=== PATIENT | female | born 1980 | race Caucasian/White ===

== ENCOUNTER 2020-05-18 07:24 | Outpatient (CLI) | payer SELFPAY ==
[2020-05-21 00:18] LABS: Patient Race White; SARS-CoV-2 RNA Undetected (Undetected); SARS-CoV-2 Specimen Source Nasopharynx
== END 2020-05-18 07:44 ==
PROVIDERS: Visit Provider Family Medicine
DX: Z11.59 Encounter for screening for other viral diseases (principal)
CPT/HCPCS: U0003

== ENCOUNTER 2021-08-15 03:57 | Outpatient (CLI) | payer OTHER, SELFPAY ==
[2021-08-17 11:47] LABS: CMV Ab, IgM Negative (Negative)
== END 2021-08-15 03:58 | disposition home or self-care (01) ==
LOC: LBO 03:58
PROVIDERS: Visit Provider Obstetrics & Gynecology Reproductive Endocrinology
DX: N97.8 Female infertility of other origin (principal)
CPT/HCPCS: 36415; 86644; 86645

== ENCOUNTER 2021-09-07 03:53 | Outpatient (CLI) | payer OTHER, SELFPAY ==
[2021-09-08 09:36] LABS: Hepatitis B Surface Ag Negative (Negative)
[2021-09-08 10:12] LABS: Hepatitis C Ab w Rflx HCV PCR Negative (Negative)
[2021-09-08 10:46] LABS: Hep B Core Antibody Negative (Negative)
== END 2021-09-07 03:54 | disposition home or self-care (01) ==
LOC: LBO 03:53
PROVIDERS: Visit Provider Obstetrics & Gynecology Reproductive Endocrinology
DX: Z11.4 Encounter for screening for human immunodeficiency virus [HIV] (principal); Z11.3 Encounter for screening for infections with a predominantly sexual mode of transmission; Z11.59 Encounter for screening for other viral diseases
CPT/HCPCS: 36415; 86704; 86803; 87340; 86644; 86645

== ENCOUNTER 2021-10-28 14:43 | Emergency (ER) | payer OTHER, SELFPAY ==
--- NOTE | 2021-10-28 14:45 | DI.RAD_ITS ---
Exam(s) XR WRIST RT COMPLETE EXAM: XR WRIST RT COMPLETE CLINICAL HISTORY: fall onto outstretched hand while skiing, r/o fx. TECHNIQUE: 2D digital imaging was performed. COMPARISON: No exams were available for comparison FINDINGS: There is comminuted fracture of distal radius which violates the radiocarpal joint and exhibits some dorsal angulation. There is also a fracture of the ulnar styloid with some displacement. Scaphoid a ppears unremarkable as does the scapholunate distance. No carpal dislocation. IMPRESSION: Fractures of the distal radius and ulnar styloid. DATA REPOSITORY: RADIATION DOSE DELIVERED:
--- NOTE | 2021-10-28 14:49 | W.ED.GENAD ---
Discharge Plan Disposition Patient Disposition: HOME Condition: Stable Discharge Details Clinical Impression: Fracture of right wrist Primary Care Provider: Elsy,Local ED Provider: Mariam Ramires Home Meds and New Rx's Prescriptions: Continued ibuprofen 200 MG tablet 1 tab PO PRN PRN0RF Discharge Instructions Instructions: Wrist Fracture in Adults (ED) Additional Instructions: Rest, ice, and elevate the affected area as much as possible. You can take Tylenol every 4 hours and ibuprofen every 6 hours for pain. Take the oxycodone every 6-8 hours as needed and directed for pain not relieved with Tylenol or ibuprofen. Follow-up with orthopedics next week. You will likely receive a call from orthopedics to schedule your appointment. You can call them next week to confirm the plan for follow up. Return immediately to the emergency department if you develop any worsening or new concerning symptoms. Referrals: Rancho Terry MD [ [facility] STAFF PHYSICIAN] - Discharge Data Discharge Date/Time-TO BE ENTERED AT DEPARTURE: 10/28/21 17:50 Discharge Physician: Mariam Ramires Medical Decision Making 41-year-old female with history of tubal ligation presents with right wrist pain after fall while snowboarding a few hours ago. Patient appears uncomfortable. She is in a SLOAN splint of her distal right upper extremity. She has tenderness overlying the dorsal wrist. Normal capillary refill. No tenderness at overlying remainder of right upper extremity. Will refer for right wrist x-ray and give a dose of Tylenol. She declines any narcotics at this time. Xray notes: There is comminuted fracture of distal radius which violates the radiocarpal joint and exhibits some dorsal angulation.? There is also a fracture of the ulnar styloid with some displacement.? Scaphoid appears unremarkable as does the scapholunate distance.? No carpal dislocation. SLOAN splint removed after xray and exam notes deformity with bowing of distal wrist on the volar aspect and dorsal angulation of the distal wrist and hand just inferior to this. NV intact. Imaging reviewed with Dr. Terry who recommends hematoma block with manipulation to slightly reduce prior to splint placement. This injury will require surgery. Orthopedics will follow up next week. Patient given oxycodone and hematoma block performed with reduction/manipulation to improve angulation and volar splint placed. Dr. Terry requested a CT of her wrist which was obtained and noted improved anatomic alignment. Patient placed on orthopedic follow-up list. She was given oxycodone to go for breakthrough pain. A sling was placed. Usual and customary return precautions given prior to discharge. Medical Records Medical records reviewed: Yes I reviewed the patient's medical records. Imaging Data Radiologic Study: Radiologist's impression: ?XR WRIST RT COMPLETE CLINICAL HISTORY: ? fall onto outstretched hand while skiing, r/o fx. ? TECHNIQUE:? 2D digital imaging was performed. COMPARISON:? No exams were available for comparison FINDINGS: There is comminuted fracture of distal radius which violates the radiocarpal joint and exhibits some dorsal angulation.? There is also a fracture of the ulnar styloid with some displacement.? Scaphoid appears unremarkable as does the scapholunate distance.? No carpal dislocation. IMPRESSION: Fractures of the distal radius and ulnar styloid. CT Right Upper Extremity Without Contrast, Wrist Exam date and time: 10/28/2021 17:20 Age: 41 years old Clinical indication: Injury or trauma; Blunt trauma (contusions or hematomas); Wrist; Right; Patient HX: S/P fall, intra-articular FX, post splint TECHNIQUE: Imaging protocol: CT of the Right upper extremity without contrast was performed. Exam focused on the wrist. COMPARISON: CR XR WRIST RT COMPLETE 10/28/2021 15:39 FINDINGS: Bones/joints: Acute comminuted intra-articular radial fracture. Impaction has been reduced and is now minimal. Dorsal angulation is essentially anatomic. Acute fracture of the ulnar styloid without significant distraction. The carpal bones are intact. No dislocation. Soft tissues: Generalized soft tissue swelling about the wrist. IMPRESSION: 1. Acute comminuted intra-articular radial fracture in nearly anatomic alignment. 2. Acute fracture of the ulnar styloid without significant distraction. HPI General Date/Time Provider Initiated Documentation: 10/28/21 14:49. Limitations to Documentation: no limitations. Information obtained by: patient. HPI Narrative: Patient is a 38 yo female with a history of tubal ligation who presents with right wrist pain after fall onto outstretched hand while snowboarding 2 hours ago. Patient states she [place] She states she was wearing a helmet and denies any head injury or damage to helmet. She denies headache, neck pain, LOC or vomiting. She states she is only having pain in her right wrist and denies any pain in her shoulder, elbow, left arm or legs. She denies any neck pain, back pain, chest or abdominal pain. She took 800 mg of ibuprofen at 1 PM. Related Data Home Medications Medication Instructions Recorded Confirmed ibuprofen 200 mg tablet 1 tab PO PRN PRN 10/24/15 10/28/21 Allergies Allergy/AdvReac Type Severity Reaction Status Date / Time shrimp AdvReac Mild Hives Unverified 10/28/21 15:51 General Stated Complaint: Orthopedic Review of Systems All systems reviewed & are unremarkable except as noted in HPI and below Constitutional Constitutional: Reports as per HPI, Denies chills and Denies fever(s) Eyes Eyes: Denies blurry vision ENT Ears, Nose, Mouth, and Throat: Denies dizziness, Denies sore throat and Denies throat swelling Cardiovascular Cardiovascular: Denies chest pain and Denies dyspnea Respiratory Respiratory: Denies cough and Denies dyspnea Gastrointestinal Gastrointestinal: Denies abdominal pain, Denies diarrhea and Denies vomiting Genitourinary Genitourinary: Denies hematuria and Denies dysuria Musculoskeletal Musculoskeletal: Denies back pain and Denies numbness Comments: R wrist pain Integumentary/Breasts Skin/Breast: Denies lesions and Denies rash Neurologic Neurologic: Denies dizziness, Denies localized weakness and Denies numbness Allergic/Immunologic Allergic/Immunologic: Denies throat swelling PFSH All Active Problems (Updated 10/28/21 @ 16:32 by Mariam Ramires DO) Fracture of right wrist (Acute) Social History Smoking/Tobacco Use Status: Never Smoking risk assessment performed?: Yes Alcohol Intake: never Drug use: Never Do you feel safe at home: Yes Exam Const General: cooperative and uncomfortable Orientation: alert, awake and oriented x3 HENMT Head: normal to inspection Mouth: oral mucosae normal Eyes General: appearance normal, both eyes and all related structures Neck Neck: normal visual inspection Resp Effort & Inspection: normal respiratory effort and able to speak in complete sentences Cardio Rate: regular rate Skin General skin exam: no rashes or lesions noted Neuro General: patient alert, patient awake and patient oriented x3 Motor: muscle tone normal throughout Extrem Other: Right upper extremity initially examined with SLOAN splint in place. She has moderate edema and significant tenderness overlying the distal dorsal wrist. Normal capillary refill. No tenderness to palpation to right shoulder, upper arm, elbow or proximal forearm. After SLOAN splint removed, there is bowing on the volar aspect of the distal wrist with dorsal angulation of the wrist and hand just inferior to this. Right radial and ulnar pulses intact. Hand normal to inspection. There are no open wounds. Psych Appearance: grossly normal Affect: normal affect Procedures Orthopedic Fracture Reduction Fracture #1: Time Out Performed: Yes Side: right Fracture Reduction Location: radius Analgesia: hematoma block (5cc 1% lidocaine and 5cc 0.5% bupivicaine) Technique: direct manipulation Post Reduction X-rays Demonstrate: anatomical reduction Post-reduction neuro exam: intact Post-reduction vascular exam: intact Splint Applied: Yes Patient Tolerated Procedure: well
[2021-10-28 14:57] VITALS: BP 128/76; PULSE 86; RESP 16; TEMP 36.9; O2SAT 99
[2021-10-28] MEDS: Acetaminophen 500 MG TAB 1000 MG PO (16:06)
[2021-10-28] MEDS: Bupivacaine 0.5% Pres-Free 30 ML VIAL (16:17)
[2021-10-28] MEDS: oxyCODONE 5 MG TAB PO (16:28)
--- NOTE | 2021-10-28 17:15 | DI.CT_ITS ---
Exam(s) CT UPPER EXTREMITY RT WO EXAM: CT UPPER EXTREMITY RT WO CLINICAL HISTORY: s/p fall, intra-articular fx, post splint. TECHNIQUE: Imaging Protocol: Axial computed tomography images with coronal and sagittal reformatted images were created and reviewed. COMPARISON: CR XR WRIST RT COMPLETE from 10/28/2021 FINDINGS: Bones: There is an acute intra-articular comminuted fracture of the distal radius. Since the plain films there is a been a reduction in the angulation and impaction which are now minimal. There is al so an acute ulnar styloid process fracture which is comminuted. No significant displacement is seen. No cellulitic or osteomyelitic changes are identified. There is no evidence of joint space narrowi ng or cystic degeneration seen. No lytic or sclerotic lesions are identified. Soft Tissues: Generalized soft tissue swelling about the wrist. IMPRESSION: 1. Improved alignment of the comminuted intra-articular fracture of the distal radius. 2. Comminuted ulnar styloid process fracture. RADIATION DOSE DELIVERED: 149.4mGy.cm Total DLP 149.4mGy.cm Total DLP DATA REPOSITORY: All CT scans at this facility are submitted to the National Radiology Data Registry (NRDR) Dose Index Registry (DIR) with the [employer] (A[employer]). RADIATION OPTIMIZATION: All CT scans at this facility use at least one of these dose optimization te chniques: automated exposure control; mA and/or kV adjustment per patient size (includes targeted exa ms where dose is matched to clinical indication); or iterative reconstruction.
--- NOTE | 2021-10-28 17:46 | DI.VRAD_ITS ---
PROCEDURE INFORMATION: Exam: CT Right Upper Extremity Without Contrast, Wrist Exam date and time: 10/28/2021 17:20 Age: 41 years old Clinical indication: Injury or trauma; Blunt trauma (contusions or hematomas); Wrist; Right; Patient HX: S/P fall, intra-articular FX, post splint TECHNIQUE: Imaging protocol: CT of the Right upper extremity without contrast was performed. Exam focused on the wrist. COMPARISON: CR XR WRIST RT COMPLETE 10/28/2021 15:39 FINDINGS: Bones/joints: Acute comminuted intra-articular radial fracture. Impaction has been reduced and is now minimal. Dorsal angulation is essentially anatomic. Acute fracture of the ulnar styloid without significant distraction. The carpal bones are intact. No dislocation. Soft tissues: Generalized soft tissue swelling about the wrist. IMPRESSION: 1. Acute comminuted intra-articular radial fracture in nearly anatomic alignment. 2. Acute fracture of the ulnar styloid without significant distraction. Dictated and Authenticated by: Lina Moore MD. Ordering:CEE Becerra MD
[2021-10-28 17:48] VITALS: BP 112/70; PULSE 80; RESP 17; TEMP 36.6; O2SAT 100
== END 2021-10-28 17:50 | disposition home or self-care (01) ==
PROVIDERS: Emergency Provider Physician Assistant
DX: S52.591A Other fractures of lower end of right radius, initial encounter for closed fracture (principal); V00.311A Fall from snowboard, initial encounter
CPT/HCPCS: 81025; 25605; 73110; 73200

== ENCOUNTER 2021-10-31 10:38 | Outpatient (CLI) | payer OTHER, SELFPAY ==
[2021-10-31 12:58] LABS: Source Nasal/Nares
[2021-10-31 17:07] LABS: COVID-19 PCR Negative (Negative)
== END 2021-10-31 10:39 | disposition home or self-care (01) ==
PROVIDERS: Visit Provider Student in an Organized Health Care Education/Training Program
DX: Z20.822 Contact with and (suspected) exposure to COVID-19 (principal); Z01.818 Encounter for other preprocedural examination
CPT/HCPCS: 87635

== ENCOUNTER 2021-11-02 11:47 | Day surgery (SDC) | payer OTHER, SELFPAY ==
[2021-11-02] VITALS (10 sets, daily range): BP systolic 101–114; BP diastolic 55–81; PULSE 54–71; RESP 12–20; TEMP 36.4–36.9; TEMPC 36.5; O2SAT 95–100; BMI 21.2
--- NOTE | 2021-11-02 07:57 | W.PM.DSUDISC ---
Discharge Plan Disposition Patient Disposition: HOME Condition: Stable Discharge Details Reason For Visit: Right Wrist ORIF Attending Provider: Rancho Terry Primary Care Provider: No,Local Home Meds and New Rx's Prescriptions: Continued hydrocodone-acetaminophen 5-325 mg tablet 1 tab PO Q4H MDD 30mg PRN (Reason: pain) Qty: 10 0RF ibuprofen 200 MG tablet 1 tab PO PRN PRN0RF Discharge Instructions Additional Instructions: Wrist Fracture Fixation Discharge Instructions Activity: You should keep the hand/wrist elevated as much as possible for the first few days. You may use the other fingers as tolerated but avoid trying to do too much too soon. You may perform light activities with the splint in place. Dressing/Cast: Your splint should stay in place at all times. Do NOT get it wet. You may loosen the CINDY wrap if you feel it is too tight and then rewrap more loosely. Medications: - You should take Tylenol and Ibuprofen for baseline pain control. - Continue your previously prescribed stronger pain medication, hydrocodone, for breakthrough pain. - You may apply ice over the wrist, just double bag so it doesn't get wet. Follow-up: 10-14 days Referrals: Rancho Terry MD [ [facility] STAFF PHYSICIAN] - Equipment/Supplies: Splint Activity:: Activity as Tolerated Remove Dressings/Wound Care:: Do Not Remove Shower/Bathe:: Cover Diet:: As Tolerated Discharge Orders Discharge Orders: Discharge Order (Routine); Ordered 11/02/21 Ordered By: Ignacia Mar DS: Diagnosis Discharge Diagnosis (1) Fracture of right wrist: Status: Acute
[2021-11-02] MEDS: Lactated Ringers 1,000 ML 80 ML IV (12:51)
--- NOTE | 2021-11-02 12:55 | W.ANESPRE ---
General Info Date of Service Date Performed: 11/02/21 Height: 5 ft 6 in Weight: 59.8 kg Body Mass Index (BMI): 21.2 Surgical Procedure: Operation Date: 11/02/21 14:10 Proposed Procedure Side Surgeon p Wrist ORIF Distal Radius Right Rancho Terry MD Meds Allergies and Home Medications Allergies Allergy/AdvReac Type Severity Reaction Status Date / Time shrimp AdvReac Mild Hives Unverified 11/02/21 12:27 Splint Material Allergy Intermediate Skin Rash Uncoded 11/02/21 12:27 Home Medication Medication Instructions Recorded ibuprofen 200 mg tablet 1 tab PO PRN PRN 10/24/15 hydrocodone 5 mg-acetaminophen 325 1 tab PO Q4H PRN #10 tab MDD 30mg 10/31/21 mg tablet multivit-iron 18 mg-folic acid 400 tab PO 11/02/21 mcg-calcium 500 mg-minerals tablet (Women's One Daily) Current Visit Medications: Current Medications Generic Name Dose Route Start Last Admin Trade Name Freq PRN Reason Stop Dose Admin Acetaminophen 650 mg 11/02/21 07:57 Acetaminophen 325 Mg Tab PO Q4H PRN PRN Hydrocodone Bitart/Acetaminophen 0 tab 11/02/21 07:57 Hydrocodone 5/Acetaminophen 325 Tab PO Q3H PRN PRN Pain Ringer's Solution 1,000 mls @ 80 mls/hr 11/02/21 06:00 11/02/21 12:51 IV 12/01/21 23:59 80 mls/hr INFUSION ALONDRA Administration Cefazolin Sodium/Dextrose 2 gm in 50 mls @ 100 mls/hr 11/02/21 06:00 Ancef Duplex IVPB 12/01/21 23:59 PREOP ALONDRA Ondansetron HCl 4 mg/ Sodium 52 mls @ 200 mls/hr 11/02/21 07:57 Chloride IVPB Q6H PRN PRN IV Miscellaneous Supplies 1 each 11/02/21 06:00 Iv Access IV 12/01/21 23:59 DIRECTED ALONDRA Sodium Chloride 0 ml 11/02/21 06:00 Normal Saline Flush 10 Ml Syr IV 12/01/21 23:59 PRN PRN Sodium Chloride 0 ml 11/02/21 06:00 Normal Saline 10 Ml Vial IJ 12/01/21 23:59 DIRECTED PRN Sterile Water 0 ml 11/02/21 06:00 Water,Injection,Sterile 10 Ml Vial IJ 12/01/21 23:59 DIRECTED PRN PFSH Active Problems Active Problems: Problem Status Onset Code Fracture of right wrist S62.101A Surgical History Surgical History (Updated 11/02/21 @ 12:25 by Madeline Bundy RN) History of tubal ligation Hx of eye surgery Tobacco Smoking/Tobacco Use Status: Never Alcohol Alcohol Intake: never Substance Use Substance use: Never Substance use type: does not use Vital Signs and Lab Results Vital Signs Most Recent Vital Signs in EMR: Most Recent Vital Signs Temp Pulse Resp BP Pulse Ox 36.9 C 71 18 101/81 99 11/02/21 12:05 11/02/21 12:05 11/02/21 12:05 11/02/21 12:05 11/02/21 12:05 Lab Results Blood Type / Crossmatch: No Data to Display Complete Blood Count: No Data to Display Complete Metabolic Panel: No Data to Display Liver Function Panel: No Data to Display Coagulation Panel: No Data to Display Cardiac Panel: No Data to Display Arterial Blood Gas: No Data to Display Venous Blood Gas: No Data to Display Pancreas Panel: No Data to Display Thyroid Panel: No Data to Display Infectious Disease: Coronavirus (COVID-19)(PCR) Negative (Negative) 10/31/21 10:30 10/31/21 Coronavirus 2019 Source Nasal/Nares 10/31/21 10:30 10/31/21 Blood Cultures: No Data to Display Toxicology Panel: No Data to Display Panel: No Data to Display Anesthesia Assessment and Plan Anesthesia History Personal History: No History of Anesthesia Complications Family History: No Family History of Anesthesia Complications Exercise Tolerance Exercise Tolerance: Metabolic Equivalents<4 Pertinent Negatives Pertinent Negatives: No Symptoms of GERD, No Major Cardiovascular Symptoms or Complaints, No Major Pulmonary Symptoms or Complaints and No History of CVA/TIA Cardiac & Pulmonary Exam Cardiac Exam: Normal S1/S2 Heart Sounds Pulmonary Exam: Clear Bilateral Breath Sounds Implantable Cardiac Device Does patient have a Pacemaker or an ICD?: No Airway Exam Known Difficult Airway: No Mallampati Class: 1 Mouth Opening: Normal (> 3cm) Thyromental Distance: Greater than 3 cm Neck Range of Motion: Full ROM Neck Circumference: Normal Teeth Condition: Normal Dentition ASA Classification ASA Score: ASA 1 Emergency Case?: No NPO Status NPO Status: NPO Clears >2 hours, Solids >8 hours Status Status: Not Relevant due to Medical History Anesthesia Plan Resuscitation Status: Full Code Anesthesia Technique: General Anesthesia Airway Planned: LMA Monitors Used: Standard Monitors
--- NOTE | 2021-11-02 13:00 | DI.RAD_ITS ---
Exam(s) XR WRIST RT LIMITED EXAM: XR WRIST RT LIMITED CLINICAL HISTORY: intra-articular distal radius fracture, right TECHNIQUE: 2D and realtime digital imaging was performed. COMPARISON: No exams were available for comparison FINDINGS: C-arm fluoroscopy was utilized by Dr. Terry during open reduction and internal fixation of fractur e of the distal radius. Hard copy shows plate and screw fixation of the distal radial fracture fragm entgeorge. IMPRESSION: RADIATION DOSE DELIVERED: gucci Tellez=0.31 mGy Total DLP
[2021-11-02] MEDS: ceFAZolin 2 GM/50 ML BAG IVPB (13:25)
[2021-11-02] MEDS: Bupivacaine 0.25% Pres-Free 30 ML VIAL (14:35)
[2021-11-02] MEDS: Normal Saline 10 ML VIAL IJ (15:17)
[2021-11-02] MEDS: HYDROmorphone 2 MG/ML VIAL IVP ×2 (15:17→15:37)
--- NOTE | 2021-11-02 15:19 | W.ANESPOSTOP ---
Postoperative Evaluation Date, Time and Location Date Performed: 11/02/21 Time Performed: 15:19 Patient Location: PACU Vital Signs Most Recent Imported Vital Signs: Most Recent Vital Signs Temp Pulse Resp BP Pulse Ox 36.9 C 71 18 101/81 99 11/02/21 12:05 11/02/21 12:05 11/02/21 12:05 11/02/21 12:05 11/02/21 12:05 Most Recent Manually Entered Vital Signs: Adult Blood Pressure: 114/61 Heart Rate: 56 Respirations: 14 Oxygen Saturation (%): 97 Temperature (C): 36.5 C Pain Score (0-10 Scale): 2 Pain Score Most Recent Pain Score: Most Recent Pain Score Pain Level 6 11/02/21 12:05 Assessment Mental Status: Awake (Alert & Oriented to Patient Baseline) Airway and Respiratory Function: Patent airway with normal (patient baseline) respiratory exam Cardiovascular Function: Hemodynamically Stable Hydration Status: Adequately Hydrated Nausea & Vomiting: No Nausea or Vomiting Pain: Pain is tolerable per patient (Recieved 0.3mg dilaudid) Peripheral Nerve Block: Patient did not receive a nerve block
--- NOTE | 2021-11-02 15:42 | ROE_ITS ---
Date of service: 11/02/21 Time of Service: 14:40 Operative Note Operative Note DATE OF PROCEDURE: 11/02/21 PRE-OP DIAGNOSIS: Right Distal Radius Fracture POST-OP DIAGNOSIS: same PROCEDURE: Open Reduction and Internal Fixation of Right Distal Radius -3 parts SURGEON: [place] [employer] TECHNICIAN: Ignacia Mar Refer to Anesthesia Record ESTIMATED BLOOD LOSS: 10 PATHOLOGY: none sent TOURNIQUET TIME: 58 COMPLICATIONS: None Patient was transported to: PACU Patient's condition: stable Indications: Mary is a 41-year-old female who I have seen for a distal radius fracture. Given the deformity, intra-articular displacement, fracture pattern, and effect on daily function, I recommended surgical fixation. I reviewed the risk of the procedure to include bleeding, infection, stiffness, damage to nerves and vessels, damage to muscles and tendons, malunion, nonunion, hardware prominence, tendon rupture, need for repeat procedures. Despite these risks, the patient elected to proceed. Findings: There is a distal radius fracture which had three primary parts. It was reduced and fixed with direct manipulation, dorsal clamping, and a Synthes volar locking plate. Procedure Description: Mary was greeted in the preoperative holding area. The correct patient and site was confirmed and marked. The history and physical was updated. The consent was reviewed the patient and signed. The patient was taken to the o perating room and placed in the supine position. All bony problems were well- padded. The right arm was placed onto a radiolucent hand table. A nonsterile tourniquet was placed high up on the arm. Prophylactic antibiotics in the form of [cefazolin] were administered. The left arm was prepped with ChloraPrep and draped in a standard fashion. A timeout was performed for safe surgery. A standard longitudinal incision was made overlying the flexor carpi radialis tendon starting at the distal wrist crease and moving proximally. The skin was incised sharply. The flexor carpi radialis tendon and its sheath is identified. The sheath was opened. The tendon was moved ulnarly in the floor of the sheath was incised. Blunt dissection the flexor pollicis longus muscle belly and tendon were also made radially exposing the pronator quadratus and the distal radius. The printer quadratus was elevated with an ulnar-based flap. This exposed the volar distal radius and the fracture. A roe elevator was used for full exposure of the volar surface of the distal radius. The primary fracture line was exposed. Using a series of elevators, curettes, and knife, the fracture was fully debrided of any fibrous tissue and callus formation. I used a freer elevator to help mobilize the fragments. There is a split traversing into the radial styloid and there was the known dorsal ulnar fragment. The volar components of the fracture were aligned. I then performed a closed reduction to improve the palmar tilt using gentle traction and fracture manipulation, this reduction was held. Fluoroscopic images were used to confirm adequate reduction. An appropriately sized Synthes volar locking plate was then placed onto the bony surface of the distal radius. Was then held there with a distal radius clamp sandwiching the plate to the distal segment and compressing the dorsal components. A repeat x-ray was confirmed to show that the dorsal ulnar fragment was now well aligned. A single K wire was placed through the distal end. Fluoroscopy was once again used to confirm appropriate positioning of the plate on the distal radius. A reduction K wire was placed into the slotted hole on the shaft but not tightened all the way to allow for manipulation of the distal segment onto the proximal shaft. A single nonlocking screw was placed to the distal portion of the plate securing the plate against the bone of the distal radial metaphysis. This was placed in the distal, ulnar hole and aimed distally to capture the small distal ulnar fragment. Again, the plate was evaluated to make sure it was aligned appropriately. The single screw was also checked to make sure it was in appropriate positioning for trajectory of future screws. The remainder of the screws within the volar locking plate were filled with locking screws. These were made sure not to penetrate the dorsal cortex. Once these were applied the proximal portion of the plate was further reduced down onto the shaft, which further reduce the distal segment. This was held in position with a tightened reduction K wire. Fluoroscopy was then used against confirm appropriate reduction. Nonlocking screws were placed within the 3 shaft screw holes. Final x-rays were obtained which demonstrated adequate reduction and positioning of hardware. The dorsal sunrise view was also obtained to ensure correct sizing of screws. The wound was then thoroughly irrigated. The pronator quadratus was reapproximated with a 0 Vicryl. The tourniquet was released and there was no notable vascular injury. The fingers were warm and well-perfused. The deep dermal layer was closed with a 2-0 Vicryl. The skin was closed with 4-0 Monocryl in a subcuticular fashion. The wound was dressed with Xeroform, 4 x 4's, Kerlixl. A short arm splint was applied. At the end the case all counts are correct. Patient was transferred back to the PACU in stable condition.
[2021-11-02] MEDS: HYDROcodone 5/Acetaminophen 325 TAB PO (16:28)
== END 2021-11-02 17:24 | disposition home or self-care (01) ==
LOC: SUR 11:48
PROVIDERS: Visit Provider Student in an Organized Health Care Education/Training Program
PROC: (CPT 25609; principal; 2021-11-02 14:00)
DX: S52.571A Other intraarticular fracture of lower end of right radius, initial encounter for closed fracture (principal); X58.XXXA Exposure to other specified factors, initial encounter
CPT/HCPCS: 25609; 73100; J0690; J1100; J1885; J2001; J2250; J2405; J2704

== ENCOUNTER 2021-11-14 09:25 | Outpatient (CLI) | payer OTHER, SELFPAY ==
--- NOTE | 2021-11-14 09:00 | DI.RAD_ITS ---
Exam(s) XR WRIST RT LIMITED EXAM: XR WRIST RT LIMITED INDICATION: fx R wrist. COMPARISON: CT CT UPPER EXTREMITY RT WO from 10/28/2021 RF XR WRIST RT LIMITED from 11/02/2021 TECHNIQUE: 2D digital imaging was performed. Two views. FINDINGS: A fixation plate is again noted along the volar aspect of the distal radius for fracture fixation. T here has been no change in fracture or hardware alignment. No change ulnar styloid fracture. No new abnormalities. DATA REPOSITORY: RADIATION DOSE DELIVERED:
== END 2021-11-14 09:26 | disposition home or self-care (01) ==
LOC: DIORS 09:26
PROVIDERS: Visit Provider Physician Assistant
DX: S52.571D Other intraarticular fracture of lower end of right radius, subsequent encounter for closed fracture with routine healing (principal); V00.311D Fall from snowboard, subsequent encounter
CPT/HCPCS: 73100

== ENCOUNTER 2022-01-23 08:57 | Outpatient (CLI) | payer OTHER, SELFPAY ==
--- NOTE | 2022-01-23 09:00 | DI.RAD_ITS ---
Exam(s) XR WRIST RT LIMITED EXAM: XR WRIST RT LIMITED INDICATION: R wrist fx. COMPARISON: CR XR WRIST RT LIMITED from 11/14/2021 TECHNIQUE: 2D digital imaging was performed. Two views. FINDINGS: There has been no change in fracture or hardware alignment. There is further healing of the distal r adial fracture. DATA REPOSITORY: RADIATION DOSE DELIVERED:
== END 2022-01-23 08:58 | disposition home or self-care (01) ==
PROVIDERS: Visit Provider Student in an Organized Health Care Education/Training Program
DX: S52.571D Other intraarticular fracture of lower end of right radius, subsequent encounter for closed fracture with routine healing (principal); X58.XXXD Exposure to other specified factors, subsequent encounter
CPT/HCPCS: 73100

== ENCOUNTER 2022-04-24 08:58 | Outpatient (CLI) | payer OTHER, SELFPAY ==
--- NOTE | 2022-04-24 08:45 | DI.RAD_ITS ---
Exam(s) XR WRIST RT LIMITED EXAM: XR WRIST RT LIMITED CLINICAL HISTORY: follow up. TECHNIQUE: 2D digital imaging was performed. Two images were obtained. PA and lateral views were ob tained. COMPARISON: CR XR WRIST RT LIMITED from 01/23/2022 FINDINGS: BONES: There are stable post operative changes present. No new fracture or dislocation. The distal r adial fracture appears well healed. The displaced ulnar styloid process fracture is unchanged. JOINTS: The joint spaces are well maintained. No joint effusion is present. SOFT TISSUE: Normal. IMPRESSION: Stable postoperative changes. DATA REPOSITORY: RADIATION DOSE DELIVERED:
== END 2022-04-24 08:59 | disposition home or self-care (01) ==
LOC: DIORS 08:58
PROVIDERS: Visit Provider Physician Assistant Surgical
DX: S52.611D Displaced fracture of right ulna styloid process, subsequent encounter for closed fracture with routine healing; S52.571D Other intraarticular fracture of lower end of right radius, subsequent encounter for closed fracture with routine healing
CPT/HCPCS: 73100

== ENCOUNTER → 2022-06-15 12:55 | Outpatient (CLI) | payer OTHER, SELFPAY ==
--- NOTE | 2022-06-15 | DI.RAD_ITS ---
Exam(s) XR CHEST 2V PA LATERAL EXAM: XR CHEST 2V PA LATERAL CLINICAL HISTORY: COUGH--R05.8 TECHNIQUE: 2D digital imaging was performed of the chest. Two images were obtained. PA and lateral views were obtained. COMPARISON: No exams were available for comparison FINDINGS: MEDIASTINUM: Normal. HEART: Normal. PULMONARY VASCULATURE: Normal. LUNGS: Clear. PLEURAL SPACE: No pleural effusion or pneumothorax. BONE:Within normal limits for the patient's age. OTHER FINDINGS:Normal. IMPRESSION: No acute pulmonary findings. DATA REPOSITORY: RADIATION DOSE DELIVERED:
== END ==
PROVIDERS: Visit Provider Physician Assistant Medical
DX: R05.8 Other specified cough (principal)
CPT/HCPCS: 71046

== ENCOUNTER 2022-06-15 15:06 | Outpatient (REF) | payer OTHER, SELFPAY ==
[2022-06-17 12:38] LABS: COVID-19 RT-PCR UVMMC Result Negative (Negative)
== END 2022-06-15 15:07 | disposition home or self-care (01) ==
LOC: LBN 15:06
PROVIDERS: Visit Provider Physician Assistant Medical
DX: Z20.822 Contact with and (suspected) exposure to COVID-19 (principal); R05.8 Other specified cough
CPT/HCPCS: U0003

== ENCOUNTER 2023-12-13 15:15 | Outpatient (CLI) | payer OTHER, SELFPAY ==
--- NOTE | 2023-12-13 13:19 | DI.RAD_ITS ---
Exam(s) XR WRIST RT LIMITED EXAM: XR WRIST RT LIMITED CLINICAL HISTORY: S/P ORIF R WRIST. TECHNIQUE: 2D digital imaging was performed of the right wrist. Two views were obtained. PA and la teral views were obtained. COMPARISON: CR XR WRIST RT LIMITED from 04/24/2022 FINDINGS: BONES: No acute fracture is present. No bony destructive lesion is seen. There is again seen an anter ior plate and screws in the distal right radius. The fracture appears well healed. No new fractures identified. The nonunited ulnar styloid process fragment is unchanged. JOINTS: The carpal bones are normally aligned. SOFT TISSUE: Normal. IMPRESSION: No acute abnormality. Stable postsurgical and posttraumatic changes of the wrist as described above. DATA REPOSITORY: RADIATION DOSE DELIVERED:
== END 2023-12-13 15:16 | disposition home or self-care (01) ==
LOC: DIORS 15:15
PROVIDERS: Visit Provider Student in an Organized Health Care Education/Training Program
DX: Z98.890 Other specified postprocedural states (principal)
CPT/HCPCS: 73100

== ENCOUNTER → 2024-01-01 03:30 | Outpatient (CLI) | payer OTHER, SELFPAY ==
--- NOTE | 2024-01-01 07:30 | DI.MRI_ITS ---
Exam(s) MR UPPER JOINT RT WO EXAM: MR UPPER JOINT RT WO CLINICAL HISTORY: PAINFUL R WRIST,fx rt wrist,painful hardware,[id number],[id number]. TECHNIQUE: Multiplanar multisequence MRI was performed. COMPARISON: Plain films 13 December 2023 FINDINGS: BONES: Hardware is again noted along distal radius which creates significant artifact. A nonunited u lnar styloid fracture is visible. JOINTS: The radiocarpal joint is unremarkable. The carpal joints are unremarkable as visualized. TENDONS: Flexors: Unremarkable where visualized. Extensors: Unremarkable where visualized. MUSCLES: Unremarkable where visualized. MEDIAN NERVE: Unremarkable on this noncontrast examination. SOFT TISSUES: Unremarkable where visualized. TRIANGULAR FIBROCARTILAGE: Obscured IMPRESSION: Significant artifact related to distal radial fixation plate. This obscures evaluation of the bones and adjacent soft tissues. DATA REPOSITORY:
== END ==
PROVIDERS: Visit Provider Student in an Organized Health Care Education/Training Program
DX: T84.84XA Pain due to internal orthopedic prosthetic devices, implants and grafts, initial encounter (principal); Z98.890 Other specified postprocedural states; X58.XXXA Exposure to other specified factors, initial encounter
CPT/HCPCS: 73221

== ENCOUNTER 2024-12-05 14:45 | Outpatient (REF) | payer OTHER, SELFPAY ==
[2024-12-05 14:56] LABS: HCT 40.6 % (36.0-46.0); HGB 13.2 g/dL (11.2-15.7); MCH 30.4 pg (27.0-33.0); MCHC 32.5 % (32.0-36.0); MCV 94 fL (80-95); MPV 10.5 fL (8.0-11.0); Platelet Count 298 10^3/uL (130-400); RBC 4.34 10^6/uL (3.93-5.22); RDW 12.6 % (11.7-14.6); RDW-SD 43.7 fL; WBC 4.57 10^3/uL (4.4-10.8)
[2024-12-05 15:04] LABS: Anion Gap 8.5 mmol/L (3-11); BUN 11 mg/dL (7-18); CO2 28.5 mmol/L (21.0-32.0); CREATININE 0.7 mg/dL (0.55-1.02); Calcium 9.1 mg/dL (8.5-10.1); Calculated LDL 133 mg/dL (<100); Chloride 106 mmol/L (98-107); Cholesterol 211 mg/dL (<200); Estimated GFR 107.95 (mL/min/1.73m2); Glucose 96 mg/dL (74-106); HDL Cholesterol 63 mg/dL (>or=50); Potassium 4.3 mmol/L (3.5-5.1); Sodium 143 mmol/L (136-145); Triglyceride 75 mg/dL (<150)
[2024-12-05 15:09] LABS: Iron 86 ug/dL (50-170); Total Iron Binding Capacity 290 ug/dL (250-450); Transferrin Sat 30 % (15-50)
[2024-12-05 22:20] LABS: Estradiol 40 pg/mL (See Note)
[2024-12-05 22:29] LABS: FSH 8.3 mIU/mL (See Note)
[2024-12-12 16:13] LABS: Testosterone, Free 0.31 ng/dL (<0.13-0.95); Testosterone, Total 16 ng/dL (8-60)
== END 2024-12-05 14:46 | disposition home or self-care (01) ==
LOC: NCHCN 14:45
PROVIDERS: PCP Family Medicine; Visit Provider Family Medicine
DX: R61 Generalized hyperhidrosis (principal); N92.0 Excessive and frequent menstruation with regular cycle; Z13.220 Encounter for screening for lipoid disorders
CPT/HCPCS: 80048; 80061; 84402; 84403; 85027; 82670; 83001; 83540; 83550